=== PATIENT | female | born 1955 | race Caucasian/White ===

== ENCOUNTER 2023-08-17 07:42 | Emergency (ER) | payer OTHER, MEDICARE ==
[2023-08-17] MEDS ORDERED: KETOROLAC TROMETHAMINE 15 MG/ML VIAL IM ONE (07:58)
[2023-08-17 08:05] VITALS: BP 150/96; PULSE 87; RESP 18; TEMP 98.9; BMI 30.1
[2023-08-17] MEDS ORDERED: KETOROLAC TROMETHAMINE 15 MG/ML VIAL ONE (08:17)
== END 2023-08-17 09:04 | disposition home or self-care (01) ==
LOC: FER 07:42
PROC: 3E0233Z Introduction of Anti-inflammatory into Muscle, Percutaneous Approach (ICD-10-PCS; principal; 2023-08-17)
DX: M25.572 Pain in left ankle and joints of left foot (principal); S96.912A Strain of unspecified muscle and tendon at ankle and foot level, left foot, initial encounter; W10.9XXA Fall (on) (from) unspecified stairs and steps, initial encounter; X50.1XXA Overexertion from prolonged static or awkward postures, initial encounter
CPT/HCPCS: 73590-TC-LT-FY; 73610-TC-LT-FY; 73630-TC-LT; 99284-25